=== PATIENT | female | born 2000 | race Caucasian/White ===

== ENCOUNTER 2025-01-11 03:48 | Emergency (ER) | payer OTHER ==
[2025-01-11 03:53] VITALS: TEMP 97.9; BMI 27.6
[2025-01-11] MEDS ORDERED: ACETAMINOPHEN INJECTION 100 ML ONE (04:21)
[2025-01-11] MEDS ORDERED: ONDANSETRON 4 MG/2 ML VIAL ONE (04:21)
[2025-01-11] MEDS ORDERED: FAMOTIDINE 20 MG/50 ML IVPB 20 MG/50 ML MG IVPB ONE (04:21)
[2025-01-11] MEDS: LACTATED RINGERS SOLUTION 1000 ML INFUS.BAG IV ONE (04:44)
[2025-01-11] MEDS: ONDANSETRON 4 MG/2 ML VIAL IVPUSH ONE (04:44)
[2025-01-11] MEDS: ACETAMINOPHEN 1000 MG/100 ML BAG IVPB ONE (04:44)
[2025-01-11] MEDS: FAMOTIDINE 20 MG/50 ML IVPB 20 MG/50 ML MG IVPB ONE (04:44)
[2025-01-11 04:50] LABS: ABSOLUTE IMMATURE GRANULOCYTES 0.01 x10^3/uL (0.0-0.031); BASOPHILS # 0.02 x10^3/uL (0.01-0.08); EOSINOPHIL % 4.3 % (0.7-5.8); EOSINOPHILS # 0.26 x10^3/uL (0.04-0.36); HEMOGLOBIN 13.2 g/dL (11.2-15.7); MEAN CELL VOLUME 86.4 fl (79.4-94.8); MEAN PLT VOLUME 10.1 fl (9.4-12.3); MONOCYTE # 0.37 x10^3/uL (0.24-0.86); MONOCYTE % 6.2 % (4.7-12.5); PLATELET COUNT 241 x10^3/uL (182-369); RDW 12.2 % (12.1-16.5)
[2025-01-11 05:09] LABS: POTASSIUM 3.6 mmol/L (3.5-5.1)
[2025-01-11 05:11] LABS: CALCIUM 9.7 mg/dL (8.5-10.1)
[2025-01-11 05:12] LABS: ALBUMIN 3.7 g/dl (3.4-5.0); BLOOD UREA NITROGEN 9.6 mg/dL (7-18)
[2025-01-11 05:13] LABS: MAGNESIUM 1.6 mg/dL (1.8-2.4)
[2025-01-11 05:15] LABS: CREATININE 0.8 mg/dL (0.55-1.3)
[2025-01-11 05:16] LABS: BILIRUBIN,TOTAL 0.6 mg/dL (0.2-1)
[2025-01-11 05:17] LABS: TOT PROT 6.9 g/dl (6.4-8.2)
[2025-01-11] MEDS: MAGNESIUM SULFATE IN WATER 2 GM/50 ML IVPB IVPB ONE (05:19)
[2025-01-11] MEDS ORDERED: METOCLOPRAMIDE HCL INJECTION 10 MG/2 ML VIAL ONE (05:20)
[2025-01-11] MEDS: METOCLOPRAMIDE HCL INJECTION 10 MG/2 ML VIAL IVPB ONE (05:25)
[2025-01-11 06:08] LABS: HCV DIAGNOSTIC IN-HOUSE W/RFLX NON-REACTIVE (NONREACTIVE); HIV INTERPRETATION NEGATIVE (NEGATIVE)
[2025-01-11 06:39] VITALS: BP 121/73; PULSE 79; RESP 17
== END 2025-01-11 06:39 | disposition home or self-care (01) ==
LOC: JER 03:48
PROC: 3E033GC Introduction of Other Therapeutic Substance into Peripheral Vein, Percutaneous Approach (ICD-10-PCS; principal; 2025-01-11)
PROC: 3E033GC Introduction of Other Therapeutic Substance into Peripheral Vein, Percutaneous Approach (ICD-10-PCS; 2025-01-11)
PROC: 3E033GC Introduction of Other Therapeutic Substance into Peripheral Vein, Percutaneous Approach (ICD-10-PCS; 2025-01-11)
PROC: 3E033NZ Introduction of Analgesics, Hypnotics, Sedatives into Peripheral Vein, Percutaneous Approach (ICD-10-PCS; 2025-01-11)
DX: R11.2 Nausea with vomiting, unspecified (principal); R19.7 Diarrhea, unspecified; R10.84 Generalized abdominal pain
CPT/HCPCS: 36415; 80053; 83605; 83690; 83735; 85025; 86803; 87389; 99284-25